=== PATIENT | male | born 1930 | race Caucasian/White ===

== ENCOUNTER 2016-06-14 06:48 | Day surgery (SDC) | payer MEDICARE, OTHER ==
[~2016-06-14] VITALS: Ht 177.8 cm; Wt 83.1 kg
[~2016-06-14 06:48] MED LIST: ASPIRIN 81M81 MG/TA2 PO; B-12500 MCG PO; BETAPACE 120MG120 MG PO; CASODEX 50MG TA50 MG PO; CENTRUM SILVER1 CTB PO; CEPHALEXIN500 M1 PO; COLACE 100100 MG/CAP PO; COUMADIN 1010 MG/TAB PO; COUMADIN 1MG1 MG/TAB PO; COUMADIN 2MG2 MG/TAB PO; COUMADIN 5MG5 MG/TAB PO; FLOMAX 0.40.4 MG/CAP PO; HYDRODIURIL50 MG PO; LOPRESSOR 225 MG/TAB PO; MUCINEX 60600 MG/TA1 PO; NITRO-DUR0.2 MG/PAT TD; NORCO 325 MG-51 TAB PO; RT ADVAIR 228 DISKUS IH; THEO-DUR 3300 MG/TAB PO; VENTOLIN0.09 MG IH; VITAMIN C500 MG PO; VITAMIN D32000 I1 PO; ZESTRIL40 MG PO; ZOCOR 40MG40 MG PO
[2016-06-14 07:30] LABS: HEMATOCRIT 35.4 % (42.0-52.0); HEMOGLOBIN 11.8 g/dl (13.5-18.0); MEAN CELL VOLUME 89 fl (80.0-100.0); MEAN CORPUSCULAR HEMOGLOBIN 30 pg (27.0-31.0); MEAN CORPUSCULAR HGB CONC 33 g/dl (33.0-37.0); MEAN PLATELET VOLUME 9.7 fl (7.4-10.4); PLATELET COUNT 257 K/mm3 (130-400); REDCELL DISTRIBUTION WIDTH-CV 14.3 % (11.5-14.5); WHITE BLOOD COUNT 6.9 K/mm3 (4.8-10.8)
[2016-06-14 07:32] LABS: INR 1.4 (0.8-3.0); PROTHROMBIN TIME 15.2 SECONDS (9.7-12.8)
[2016-06-14 07:39] VITALS: BP 141/72; PULSE 61; TEMP 97.5
[2016-06-14 07:42] LABS: CALCIUM 10.2 mg/dL (8.4-10.2); CREATININE, serum 0.93 mg/dL (0.66-1.25); POTASSIUM 3.6 mmol/L (3.4-5.0)
[2016-06-14] MEDS ORDERED: ASPIRIN 81M81 MG/TA2 PO (07:46)
[2016-06-14] MEDS ORDERED: VITAMIN D31000 IU PO (07:46)
[2016-06-14] MEDS ORDERED: UNIPHYL 400MG400 MG PO (07:49)
[2016-06-14] MEDS ORDERED: ALBUTEROL0.83 MG/ML IH (08:00)
[2016-06-14] MEDS ORDERED: PERCOCET 325 MG1 TA2 PO (08:00)
[2016-06-14] MEDS ORDERED: SPIRIVA RE2.5 MCG/Ac IH (08:01)
[2016-06-14 09:21] VITALS: BP 187/97; PULSE 60
[2016-06-14 10:50] VITALS: BP 153/72; PULSE 60
[2016-06-14 11:15] VITALS: BP 149/70; PULSE 60
[2016-06-14 11:30] VITALS: BP 133/51; PULSE 60
[2016-06-14] MEDS ORDERED: CEPHALEXIN500 M1 PO (11:36)
== END 2016-06-14 13:03 | disposition home or self-care (01) ==
LOC: EUO 06:48 → COL.RAD 07:00 → EUO 13:03
PROVIDERS: Internal Medicine Cardiovascular Disease
DX: Z45.010 Encounter for checking and testing of cardiac pacemaker pulse generator [battery] (principal); I25.10 Atherosclerotic heart disease of native coronary artery without angina pectoris; Z99.81 Dependence on supplemental oxygen; J98.4 Other disorders of lung; I08.1 Rheumatic disorders of both mitral and tricuspid valves; Z79.899 Other long term (current) drug therapy; Z79.82 Long term (current) use of aspirin; Z79.52 Long term (current) use of systemic steroids; Z79.01 Long term (current) use of anticoagulants
CPT/HCPCS: C1882; J0690; J2250; J3010; J7040

== ENCOUNTER 2017-01-28 05:24 | Day surgery (SDC) | payer MEDICARE, OTHER ==
[~2017-01-28] VITALS: Ht 177.8 cm; Wt 80.9 kg
[~2017-01-28 05:24] MED LIST changes: +ALBUTEROL0.83 MG/ML IH; +PERCOCET 325 MG1 TA2 PO; +SPIRIVA RE2.5 MCG/Ac IH; +UNIPHYL 400MG400 MG PO; +VITAMIN D31000 IU PO
[2017-01-28 06:48] VITALS: BP 187/79; PULSE 64; TEMP 97.7
[2017-01-28 06:49] LABS: INR 1.3 (0.8-3.0); PROTHROMBIN TIME 14.7 SECONDS (9.7-12.8)
[2017-01-28 07:00] LABS: CALCIUM 9.7 mg/dL (8.4-10.2); CREATININE, serum 0.75 mg/dL (0.66-1.25); POTASSIUM 3.4 mmol/L (3.4-5.0)
[2017-01-28] MEDS ORDERED: XGEVA120 MG/1.7 IM (07:34)
[2017-01-28] MEDS ORDERED: ALBUTEROL0.83 MG/ML IH (07:35)
[2017-01-28] MEDS ORDERED: RT ADVAIR 228 DISKUS IH (07:35)
[2017-01-28] MEDS ORDERED: CASODEX 50MG TA50 MG PO (07:36)
[2017-01-28] MEDS ORDERED: VENTOLIN0.09 MG IH (07:37)
[2017-01-28] MEDS ORDERED: SPIRIVA RE2.5 MCG/Ac IH (07:38)
[2017-01-28] MEDS ORDERED: LOPRESSOR 225 MG/TAB PO (07:39)
[2017-01-28] MEDS ORDERED: FLOMAX 0.40.4 MG/CAP PO (07:40)
[2017-01-28] MEDS ORDERED: PRINIVIL10 MG PO (07:41)
[2017-01-28] MEDS ORDERED: BETAPACE 120MG120 MG PO (07:42)
[2017-01-28] MEDS ORDERED: THEO-DUR 2200 MG/TAB PO (07:45)
[2017-01-28] MEDS ORDERED: COUMADIN 3MG3 MG/TAB PO ×2 (07:50→07:54)
[2017-01-28] MEDS ORDERED: COUMADIN4 MG PO (07:51)
[2017-01-28] MEDS ORDERED: ZOCOR 40MG40 MG PO (07:54)
[2017-01-28] MEDS ORDERED: NITRO-DUR0.2 MG/PAT TD (07:55)
[2017-01-28] MEDS ORDERED: PERCOCET 325 MG1 TA2 PO (07:58)
[2017-01-28] MEDS ORDERED: MULTI VITAMINS1 TAB PO (07:59)
[2017-01-28] MEDS ORDERED: ASPIRIN 81M81 MG/TA2 PO (07:59)
[2017-01-28] MEDS ORDERED: HYDRODIURIL50 MG PO (09:27)
[2017-01-28 17:58] VITALS: BP 179/83; PULSE 62; TEMP 98
[2017-01-28 18:14] VITALS: TEMP 97.3
[2017-01-28 18:16] VITALS: PULSE 60
[2017-01-28 18:45] VITALS: BP 151/92
== END 2017-01-29 15:00 | disposition home or self-care (01) ==
LOC: SDCO 05:24
PROVIDERS: Plastic Surgery
DX: C44.729 Squamous cell carcinoma of skin of left lower limb, including hip (principal); C44.629 Squamous cell carcinoma of skin of left upper limb, including shoulder; C44.622 Squamous cell carcinoma of skin of right upper limb, including shoulder; I48.91 Unspecified atrial fibrillation; I25.2 Old myocardial infarction; I73.9 Peripheral vascular disease, unspecified; I25.10 Atherosclerotic heart disease of native coronary artery without angina pectoris; I11.0 Hypertensive heart disease with heart failure; J44.9 Chronic obstructive pulmonary disease, unspecified; N40.0 Benign prostatic hyperplasia without lower urinary tract symptoms; I50.9 Heart failure, unspecified; Z79.01 Long term (current) use of anticoagulants; Z95.1 Presence of aortocoronary bypass graft; Z95.810 Presence of automatic (implantable) cardiac defibrillator; Z87.891 Personal history of nicotine dependence; Z85.46 Personal history of malignant neoplasm of prostate; Z90.49 Acquired absence of other specified parts of digestive tract
CPT/HCPCS: J0690; J2250; J2704